=== PATIENT | male | born 1980 | race Caucasian/White ===

== ENCOUNTER 2021-09-17 14:22 | Inpatient (IN) | payer MEDICAID ==
[~2021-09-17] VITALS: Ht 167.6 cm; Wt 97.5 kg
[2021-09-17 14:55] VITALS: BP_SYST 122
[2021-09-17] MEDS ORDERED: NACL 0.9% 1,000 ML IV ONE ×2 (15:00→18:00)
[2021-09-17] MEDS ORDERED: LORazepam 2 MG/ML VIAL IVP ONE ×3 (15:00→15:30)
[2021-09-17] MEDS ORDERED: LORazepam 2 MG/ML VIAL ONE (15:20)
[2021-09-17] MEDS ORDERED: HALOPERIDOL LACTATE 5 MG/ML VIAL IVP ONE (15:45)
[2021-09-17] MEDS ORDERED: DIPHENHYDRAMINE INJ 50 MG/ML VIAL IVP ONE (15:45)
[2021-09-17 16:07] LABS: BILIRUBIN,URINE NEGATIVE (NEGATIVE); COLOR,URINE YELLOW (YELLOW); GLUCOSE,URINE 3+ (NEGATIVE); KETONES,URINE 1+ (NEGATIVE); LEUKOCYTE ESTERASE ,URINE NEGATIVE (NEGATIVE); NITRITE, URINE NEGATIVE (NEGATIVE); PROTEIN URINE 1+ (NEGATIVE)
[2021-09-17 16:08] LABS: BLOOD, URINE TRACE (NEGATIVE); CLARITY/URINE HAZY (CLEAR)
[2021-09-17 16:10] LABS: BARBITURATE, URINE NEGATIVE (NEG <=200); BENZODIAZEPINE, URINE NEGATIVE (NEG <=150); CANNABINOID, URINE POSITIVE (NEG <=50); COCAINE, URINE NEGATIVE (NEG <=150); METHAMPHETAMINES SCREEN,URINE POSITIVE (NEG <=500); OPIATE, URINE NEGATIVE (NEG <=100); PHENCYCLIDINE SCREEN,URINE NEGATIVE (NEG <=25); UR TRICYCLIC ANTIDEPRESSANTS NEGATIVE (NEG <=300); URINE AMPHETAMINE POSITIVE (NEG <=500); URINE METHADONE NEGATIVE (NEG <=200); URINE OXYCODONE SCREEN NEGATIVE (NEG <=100); URINE PROPOXYPHENE SCREEN NEGATIVE (NEG <=300)
[2021-09-17 16:16] LABS: BACTERIA,URINE FEW /HPF (None Seen)
[2021-09-17 16:17] LABS: MUCUS,URINE None Seen /LPF (None Seen)
[2021-09-17 18:15] LABS: ANION GAP 25 (5-15); CALCIUM 11.8 mg/dL (8.4-11.0); CHLORIDE 103 mmol/L (98-107); CREATININE 2.58 mg/dL (0.55-1.30); GLUCOSE 61 mg/dL (70-99); POTASSIUM 3.2 mmol/L (3.5-5.1); SODIUM SERUM 143 mmol/L (136-145); UREA NITROGEN, BLOOD 17 mg/dL (8-21)
[2021-09-17 18:16] LABS: GFR AFRICAN AMERICAN 35 mL/min (>90)
[2021-09-17 18:30] LABS: ALANINE AMINOTRANSFERASE 245 U/L (12-78); ALBUMIN 4.4 g/dL (3.4-4.8); ASPARTATE AMINOTRANSFERASE 365 U/L (10-37); TOTAL BILIRUBIN 1.3 mg/dL (0.0-1.0)
[2021-09-17 18:47] LABS: HEMATOCRIT 56.5 % (36-54); HEMOGLOBIN 19.1 g/dL (14.0-18.0); MEAN CORPUSCULAR HEMOGLOBIN 30 pg (27-31); MEAN CORPUSCULAR HGB CONC 34 % (32-36); MEAN CORPUSCULAR VOLUME 88 fL (79.0-98.0); PLATELET COUNT (AUTO) 254 K/uL (130-430); RED BLOOD CELL COUNT(AUTO) 6.41 MIL/uL (4.2-6.2); RED CELL DISTRIBUTION WIDTH 13.4 % (9.0-15.0); WHITE BLOOD COUNT (AUTO) 23.7 K/uL (4.8-10.8)
[2021-09-17 18:50] LABS: ALCOHOL, BLOOD < 3 mg/dL (<10)
[2021-09-17] MEDS ORDERED: NACL 0.9% 1,000 ML IV SCH (19:15)
[2021-09-17] MEDS ORDERED: KCL 20 mEq in 100 mL (PREMIX) 100 ML IV ONE (19:30)
[2021-09-17 19:34] LABS: CKMB RELATIVE INDEX 1.6 (0.0-2.9); CREATINE KINASE MB 25.3 ng/mL (0-3.6)
[2021-09-17 19:42] LABS: BAND % (MANUAL) 6 % (0-6); BASOPHILS % (MANUAL) 0 % (0-2); EOSINOPHILS % (MANUAL) 0 % (0-7); LYMPHOCYTES % (MANUAL) 15 % (20-46); MONOCYTES % (MANUAL) 8 % (0-11)
[2021-09-17] MEDS ORDERED: DEXTROSE 50% JECT 50 ML DISP.SYRIN IVP ONE (20:45)
[2021-09-17] MEDS ORDERED: LORazepam 2 MG/ML VIAL IVP PRN (21:30)
[2021-09-17] MEDS ORDERED: D5/0.45 NS 1,000 ML IV SCH (21:30)
[2021-09-17] MEDS ORDERED: LR 1,000 ML IV SCH (23:00)
[2021-09-17] MEDS ORDERED: SODIUM BICARBONATE 8.4% JECT 100 MEQ in D5W 1,000 ML IVP SCH (23:00)
[2021-09-17] MEDS ORDERED: HALOPERIDOL LACTATE 5 MG/ML VIAL IM PRN (23:15)
[2021-09-18] MEDS ORDERED: SODIUM BICARBONATE 8.4% JECT 50 MEQ/50 ML SYRINGE ONE ×2 (01:09→01:10)
[2021-09-18 05:28] VITALS: BP_SYST 109
[2021-09-18 06:30] VITALS: BP_SYST 109
[2021-09-18 06:53] LABS: BASOPHILS % (AUTO) 0.2 % (0.0-2.0); HEMATOCRIT 49.1 % (36-54); HEMOGLOBIN 16.5 g/dL (14.0-18.0); LYMPHOCYTES % (AUTO) 17.7 % (20.5-51.5); MEAN CORPUSCULAR HEMOGLOBIN 29 pg (27-31); MEAN CORPUSCULAR HGB CONC 34 % (32-36); MEAN CORPUSCULAR VOLUME 86 fL (79.0-98.0); MONOCYTES % (AUTO) 4.3 % (1.7-9.3); NEUTROPHILS # (AUTO) 17.6 K/uL (1.8-7.7); NEUTROPHILS % (AUTO) 77.8 % (40.0-70.0); PLATELET COUNT (AUTO) 198 K/uL (130-430); RED BLOOD CELL COUNT(AUTO) 5.68 MIL/uL (4.2-6.2); RED CELL DISTRIBUTION WIDTH 13.4 % (9.0-15.0); WHITE BLOOD COUNT (AUTO) 22.6 K/uL (4.8-10.8)
[2021-09-18] MEDS ORDERED: NS 500 ML IV ONE (07:00)
[2021-09-18 08:00] VITALS: BP_SYST 117
[2021-09-18 08:58] LABS: INR 1.1 (0.80-1.20)
[2021-09-18 09:14] LABS: ALBUMIN 3.9 g/dL (3.4-4.8); CREATININE 2.1 mg/dL (0.55-1.30); POTASSIUM 3.5 mmol/L (3.5-5.1); TOTAL BILIRUBIN 0.9 mg/dL (0.0-1.0)
[2021-09-18 11:40] VITALS: BP_SYST 119
[2021-09-18 11:40] LABS: CKMB RELATIVE INDEX 1.2 (0.0-2.9); CREATINE KINASE MB 107.9 ng/mL (0-3.6)
[2021-09-18 15:20] VITALS: BP_SYST 118
[2021-09-18 20:10] VITALS: BP_SYST 109
[2021-09-18] MEDS: MIRTAZAPINE 15 MG TABLET PO SCH (22:59)
[2021-09-19 00:25] VITALS: BP_SYST 107
[2021-09-19 07:51] LABS: BASOPHILS % (AUTO) 0.1 % (0.0-2.0); EOSINOPHILS # (AUTO) 0.1 K/uL (0.0-0.4); EOSINOPHILS % (AUTO) 0.7 % (0.0-4.0); HEMATOCRIT 45.6 % (36-54); HEMOGLOBIN 15.6 g/dL (14.0-18.0); LYMPHOCYTES # (AUTO) 1.8 K/uL (1.0-5.5); LYMPHOCYTES % (AUTO) 12.5 % (20.5-51.5); MEAN CORPUSCULAR HEMOGLOBIN 29 pg (27-31); MEAN CORPUSCULAR HGB CONC 34 % (32-36); MEAN CORPUSCULAR VOLUME 86 fL (79.0-98.0); MONOCYTES # (AUTO) 0.6 K/uL (0.0-1.0); MONOCYTES % (AUTO) 4.3 % (1.7-9.3); NEUTROPHILS # (AUTO) 11.9 K/uL (1.8-7.7); NEUTROPHILS % (AUTO) 82.4 % (40.0-70.0); PLATELET COUNT (AUTO) 156 K/uL (130-430); RED BLOOD CELL COUNT(AUTO) 5.32 MIL/uL (4.2-6.2); RED CELL DISTRIBUTION WIDTH 13.4 % (9.0-15.0); WHITE BLOOD COUNT (AUTO) 14.4 K/uL (4.8-10.8)
[2021-09-19 07:57] LABS: ALBUMIN 3.3 g/dL (3.4-4.8); CALCIUM 8.8 mg/dL (8.4-11.0); CREATININE 1.01 mg/dL (0.55-1.30); POTASSIUM 4.1 mmol/L (3.5-5.1); THYROID STIMULATING HORMONE 0.62 uIu/mL (0.36-3.74); TOTAL BILIRUBIN 1.5 mg/dL (0.0-1.0)
[2021-09-19 20:10] VITALS: BP_SYST 126
[2021-09-19 20:18] VITALS: BP_SYST 138
[2021-09-19] MEDS: MIRTAZAPINE 15 MG TABLET PO SCH (20:55)
[2021-09-20 00:30] VITALS: BP_SYST 127
[2021-09-20 07:26] LABS: BASOPHILS # (AUTO) 0.1 K/uL (0.0-0.2); BASOPHILS % (AUTO) 0.5 % (0.0-2.0); EOSINOPHILS # (AUTO) 0.2 K/uL (0.0-0.4); EOSINOPHILS % (AUTO) 1.9 % (0.0-4.0); HEMATOCRIT 45.7 % (36-54); HEMOGLOBIN 15.7 g/dL (14.0-18.0); LYMPHOCYTES # (AUTO) 2.7 K/uL (1.0-5.5); LYMPHOCYTES % (AUTO) 25.5 % (20.5-51.5); MEAN CORPUSCULAR HEMOGLOBIN 29 pg (27-31); MEAN CORPUSCULAR HGB CONC 34 % (32-36); MEAN CORPUSCULAR VOLUME 86 fL (79.0-98.0); MONOCYTES # (AUTO) 0.7 K/uL (0.0-1.0); MONOCYTES % (AUTO) 6.6 % (1.7-9.3); NEUTROPHILS % (AUTO) 65.5 % (40.0-70.0); PLATELET COUNT (AUTO) 170 K/uL (130-430); RED BLOOD CELL COUNT(AUTO) 5.32 MIL/uL (4.2-6.2); RED CELL DISTRIBUTION WIDTH 13.3 % (9.0-15.0); WHITE BLOOD COUNT (AUTO) 10.7 K/uL (4.8-10.8)
[2021-09-20 08:00] VITALS: BP_SYST 120
[2021-09-20 08:06] LABS: HEPATITIS A AB, IgM Negative (Negative); HEPATITIS B CORE AB, IgM Negative (Negative); HEPATITIS B SURFACE AG Negative (Negative)
[2021-09-20 08:42] LABS: ALBUMIN 3.2 g/dL (3.4-4.8); CALCIUM 8.8 mg/dL (8.4-11.0); CREATININE 0.83 mg/dL (0.55-1.30); POTASSIUM 4.3 mmol/L (3.5-5.1)
[2021-09-20 10:49] LABS: CKMB RELATIVE INDEX 0.4 (0.0-2.9)
[2021-09-20] MEDS ORDERED: LISI20TA30 PO ×2 (13:52→13:53)
[2021-09-20] MEDS ORDERED: INSU100I68 SUBQ (13:57)
[2021-09-20] MEDS ORDERED: ASPI-1393 PO (13:58)
[2021-09-20] MEDS ORDERED: LIP20 PO (13:59)
[2021-09-20] MEDS ORDERED: INSU100V7 SUBCUT (14:01)
[2021-09-20] MEDS ORDERED: HALOPERIDOL LACTATE 5 MG/ML VIAL IM SCH (21:00)
== END 2021-09-20 14:00 | disposition home or self-care (01) | DRG 812 ==
LOC: SED 14:22 → STU 21:27
PROVIDERS: ADMIT Internal Medicine; ATTEND Internal Medicine
DX: T43.621A Poisoning by amphetamines, accidental (unintentional), initial encounter (principal); N17.0 Acute kidney failure with tubular necrosis; K72.00 Acute and subacute hepatic failure without coma; G93.41 Metabolic encephalopathy; E44.1 Mild protein-calorie malnutrition; I21.A1 Myocardial infarction type 2; M62.82 Rhabdomyolysis; F32.A Depression, unspecified; Z20.822 Contact with and (suspected) exposure to COVID-19; F15.20 Other stimulant dependence, uncomplicated; E11.9 Type 2 diabetes mellitus without complications; E87.6 Hypokalemia; E66.9 Obesity, unspecified; F10.10 Alcohol abuse, uncomplicated; Y90.9 Presence of alcohol in blood, level not specified; G47.00 Insomnia, unspecified; Z87.891 Personal history of nicotine dependence; Z68.34 Body mass index [BMI] 34.0-34.9, adult; Y92.89 Other specified places as the place of occurrence of the external cause; Z59.00 Homelessness unspecified
CPT/HCPCS: 36415; 71045; 76700-TC; 76770; 80053; 80061; 80074; 80307; 81000; 82550; 82553; 83036; 83690; 83880; 84443; 84484; 85007; 85025; 85027; 85610-TC; 85730-TC; 93005; 93306; 96361; 96374; 96375; 99285; G0378; G0482; J1200; J1630; J2060; J3480; J7030; J7060